=== PATIENT | male | born 1995 | race Caucasian/White ===

== ENCOUNTER 2016-07-07 16:26 | Emergency (ER) | payer SELFPAY ==
--- NOTE | ~2016-07-07 | ER ---
PATIENT'S NAME: WU REYEZ [facility] AGE: 20 Y [address] ROOM: [place] [address] LOCATION: [facility] ADMIT DATE: 07/07/2016 ER/Outpatient Report DISCHARGE DATE: 07/07/2016 FAMILY PHYSICIAN: PHYSICIAN, NO ATTENDING PHYSICIAN: Jose Ambrose TIME: Seen at 16:40. CHIEF COMPLAINT: Upper back pain. HISTORY OF PRESENT ILLNESS: The patient is a 20-year-old male, who said that approximately two hours before his arrival, he developed a sharp pain in his upper back, worse with movement. He denied any injury or falls. He has had no fever or chills. ALLERGIES: SHELLFISH. CURRENT MEDICATIONS: None. MEDICAL HISTORY: Includes asthma. SURGERIES: None. SOCIAL HISTORY: Smoker of a pack a day. He has used marijuana in the past. REVIEW OF SYSTEMS: GENERAL: No recent health issues. He denies fevers or chills. HEAD AND ENT: No complaints of headache or sore throat. RESPIRATORY: No shortness of breath or cough. MUSCULOSKELETAL: Upper back pain. NEUROLOGIC: No numbness or tingling to his extremities. OBJECTIVE FINDINGS: VITAL SIGNS: Blood pressure was 118/77, his pulse was 79, respiratory rate was 16, O2 sats were 96%, and temperature was 98. GENERAL APPEARANCE: White male. He is alert and oriented. HEAD AND ENT: His sclera was clear. His oral membranes were moist. NECK: Some slight tenderness about C7. PATIENT'S NAME: WU REYEZ [facility] AGE: 20 Y [address] ROOM: [place] [address] LOCATION: [facility] ADMIT DATE: 07/07/2016 ER/Outpatient Report DISCHARGE DATE: 07/07/2016 FAMILY PHYSICIAN: PHYSICIAN, NO ATTENDING PHYSICIAN: Jose Ambrose LUNGS: Clear. BACK: Slight tenderness from C7 down to L1. No significant spasm was present. ABDOMEN: Firm and nontender. NEUROLOGICAL: Good sensation to all upper and lower extremities. ASSESSMENT: Upper back pain. PLAN: Naprosyn 500 one b.i.d. and Flexeril 10 mg t.i.d. for three to five days. Note was given for work tonight. Recommended he go home. Ice or heat to the upper back. Follow up if pain does not improve or if he develops a fever or if concerns. The patient verbalized understanding of his take-home instructions. He was given a handout on neck and back pain. ROSEY PATTERSON FOR MD TERA TORRES/isidra /[id number] d: 07/07/162107 t: 07/18/16 0911, OUTPATIENT REPORT
== END 2016-07-07 16:50 | disposition disaster alternative care site (69) ==
LOC: GMED 16:26
DX: M54.6 Pain in thoracic spine (principal); J45.909 Unspecified asthma, uncomplicated; F17.210 Nicotine dependence, cigarettes, uncomplicated; Z91.013 Allergy to seafood

== ENCOUNTER 2016-07-14 14:37 | Emergency (ER) | payer SELFPAY ==
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
== END 2016-07-14 16:14 | disposition disaster alternative care site (69) ==
LOC: GACC 14:37
DX: S40.012A Contusion of left shoulder, initial encounter (principal); S00.12XA Contusion of left eyelid and periocular area, initial encounter; S00.01XA Abrasion of scalp, initial encounter; J45.909 Unspecified asthma, uncomplicated; L40.9 Psoriasis, unspecified; M19.90 Unspecified osteoarthritis, unspecified site; F17.210 Nicotine dependence, cigarettes, uncomplicated; Z23 Encounter for immunization; Z91.013 Allergy to seafood; Y04.0XXA Assault by unarmed brawl or fight, initial encounter

== ENCOUNTER 2016-07-26 19:05 | Emergency (ER) | payer SELFPAY ==
--- NOTE | ~2016-07-26 | ER ---
PATIENT'S NAME: WU REYEZ [facility] AGE: 21 Y [address] ROOM: [place] [address] LOCATION: [facility] ADMIT DATE: 07/26/2016 ER/Outpatient Report DISCHARGE DATE: 07/26/2016 FAMILY PHYSICIAN: PHYSICIAN, NO ATTENDING PHYSICIAN: Dago Jiang Time of Arrival: 1923 hours. Time of Exam: 1923 hours. CHIEF COMPLAINT: Sore throat and cough. HISTORY OF PRESENT ILLNESS: The patient states that he has had cough and sore throat since Saturday, July 23, 2016. States the cough is productive of a yellowish colored phlegm. He has felt feverish at home of 101.2. He has not had any chest pain or chest discomfort. He was here a few days ago and got some Flexeril, which he stated was helping his back pain, but his roommate took it and he is not on any medicines at this time. ALLERGIES: SHELLFISH. MEDICATIONS: None. PAST MEDICAL HISTORY: Asthma, eczema, psoriasis. PAST SURGERIES: Negative. SOCIAL HISTORY: He smokes a pack of cigarettes every 1-2 days. Does drink alcohol and smoke marijuana on occasional basis. REVIEW OF SYSTEMS: All negative, other than those mentioned in the HPI. PHYSICAL EXAMINATION: VITAL SIGNS: He weighed 72.4 kg. Blood pressure is 118/70, pulse of 107, respirations 16, temperature of 98.1, O2 saturation was 95% on room air. GENERAL: He is awake, alert, and oriented x4. SKIN: [place], warm, and dry. RESPIRATIONS: Even and nonlabored. PATIENT'S NAME: WU REYEZ [facility] AGE: 21 Y [address] ROOM: [place] [address] LOCATION: [facility] ADMIT DATE: 07/26/2016 ER/Outpatient Report DISCHARGE DATE: 07/26/2016 FAMILY PHYSICIAN: PHYSICIAN, NO ATTENDING PHYSICIAN: Dago Jiagn HEENT: TMs are dull. Nose is boggy. Oropharynx, is injected posteriorly. No exudate noted. NECK: Supple. No lymphadenopathy. LUNGS: Lung sounds are clear. Just decreased in the bases. HEART: Regular rate and rhythm. DIAGNOSTIC DATA: Chest x-ray was completed. No acute abnormality is seen. IMPRESSION: Sinusitis. PLAN: Home, rest, fluids. Prescription was written for Bactrim and prednisone. He is to follow up with his primary provider in the next 2-3 days if symptoms worsen. He verbalized his understanding. ALEJANDRA FRENCH APRN FOR MD BO NAVAS/isidra /[id number] d: 07/27/16 0135 t: 07/31/16 1319, OUTPATIENT REPORT
== END 2016-07-26 19:46 | disposition disaster alternative care site (69) ==
LOC: GMED 19:05
DX: J32.9 Chronic sinusitis, unspecified (principal); J45.909 Unspecified asthma, uncomplicated; F17.210 Nicotine dependence, cigarettes, uncomplicated; Z91.013 Allergy to seafood

== ENCOUNTER 2016-09-18 01:44 | Emergency (ER) | payer SELFPAY ==
--- NOTE | ~2016-09-18 | ER ---
PATIENT'S NAME: [facility] AGE: 21 Y [address] ROOM: [place] [address] LOCATION: [facility] ADMIT DATE: 09/18/2016 ER/Outpatient Report DISCHARGE DATE: FAMILY PHYSICIAN: PHYSICIAN, NO ATTENDING PHYSICIAN: Elmo Kuhn Time of Arrival: 0147 hours. Time of Evaluation: 0150 hours. CHIEF COMPLAINT: Neck pain. HISTORY OF PRESENT ILLNESS: The patient is a 21-year-old male who presents to the emergency department today with chief complaint of neck pain. It is on the left side of his neck. It is a pinching-type pain. It started 3 days prior to arrival. It is currently 8/10 in severity. It is worse with movement. The patient works in construction. He did not have any trauma or fall, but just has been lifting and strained it. Denies any fevers or chills. No nausea or vomiting. No diarrhea or constipation. No numbness or tingling. PAST MEDICAL HISTORY: Asthma and degenerative bone disease. PAST SURGICAL HISTORY: None. SOCIAL HISTORY: The patient smokes half pack per day. Uses alcohol socially. Smokes marijuana daily. ALLERGIES: NO KNOWN DRUG ALLERGIES. MEDICATIONS: None. PRIMARY CARE DOCTOR: None. REVIEW OF SYSTEMS: All systems are reviewed by myself and are negative with the exception of those discussed in HPI and past medical history. PHYSICAL EXAMINATION: PATIENT'S NAME: WU REYEZ [facility] AGE: 21 Y [address] ROOM: [place] [address] LOCATION: [facility] ADMIT DATE: 09/18/2016 ER/Outpatient Report DISCHARGE DATE: FAMILY PHYSICIAN: PHYSICIAN, NO ATTENDING PHYSICIAN: Elmo Kuhn VITAL SIGNS: Weight 75.4 kg, blood pressure 132/71, pulse 60, respiratory rate 18, temperature 97.8, oxygen saturation 99% on room air. GENERAL: The patient is a 21-year-old male who appears stated age, in mild acute distress. HEENT: Normocephalic, atraumatic. Pupils are equal, round, and reactive to light. NECK: Supple with left paraspinal musculature tenderness to palpation. Decreased range of motion secondary to pain. There is no nuchal rigidity. CARDIOVASCULAR: Regular rate and rhythm. No murmurs, rubs, or gallops. LUNGS: Clear to auscultation bilaterally. No wheezes, rales, or rhonchi. ABDOMEN: Soft, nontender, and nondistended. No rebound, rigidity, or guarding. MUSCULOSKELETAL: The patient moves all 4 extremities. Ambulates with steady gait. SKIN: Warm and dry. There are no rashes or lesions noted. LABORATORY DATA AND X-RAYS: None. IMPRESSION: 1. Acute cervical strain. 2. Medication refill. 3. Initial visit. EMERGENCY DEPARTMENT COURSE: The patient was brought back to the examination room. Seen and evaluated by myself. History and physical performed as described above. The patient does request albuterol inhaler refill due to the patient's asthma. I [facility] I have written a prescription for albuterol, Flexeril, and Naprosyn. I have discussed [id number] instructions including worsening symptoms or any other concerns, to return to the emergency department as soon as possible. The patient is agreeable without further questions at this time. DISPOSITION: The patient is discharged home in good condition. DO ONRTH POLLOCK/isidra PATIENT'S NAME: WU REYEZ [facility] AGE: 21 Y [address] ROOM: [place] [address] LOCATION: [facility] ADMIT DATE: 09/18/2016 ER/Outpatient Report DISCHARGE DATE: FAMILY PHYSICIAN: PHYSICIAN, NO ATTENDING PHYSICIAN: Elmo Kuhn /[id number] d: 09/18/165 t: 09/20/16 0644, OUTPATIENT REPORT
== END 2016-09-18 02:11 | disposition disaster alternative care site (69) ==
LOC: GMED 01:44
DX: S16.1XXA Strain of muscle, fascia and tendon at neck level, initial encounter (principal); J45.909 Unspecified asthma, uncomplicated; F17.210 Nicotine dependence, cigarettes, uncomplicated; F12.90 Cannabis use, unspecified, uncomplicated; Z76.0 Encounter for issue of repeat prescription; X58.XXXA Exposure to other specified factors, initial encounter